=== PATIENT | male | born 1945 | race Hispanic/Latino ===

== ENCOUNTER 2023-12-05 00:31 | Inpatient (IN) | payer MEDICARE ==
[2023-12-05] MEDS ORDERED: Dexamethasone 10 MG/ML VIAL ONE (00:57)
[2023-12-05] MEDS ORDERED: Magnesium 2 GM/50 ML BAG (IN WATER) ONE (00:58)
[2023-12-05] MEDS ORDERED: Albuterol 2.5 MG (3 mL) NEB ONE (01:00)
[2023-12-05] MEDS ORDERED: Ipratropium/Albuterol 3 ML NEB ONE ×2 (01:00→12:12)
[2023-12-05] MEDS ORDERED: cefTRIAXone (ROCEPHIN) 2 GM VIAL ONE (01:27)
[2023-12-05] MEDS ORDERED: Sodium Chloride 0.9% 100 ML ONE (01:27)
[2023-12-05 01:32] LABS: #Basophils 0.1 thou/uL (0.0-0.2); #Eosinphils 0.5 thou/uL (0.0-0.7); #Monocytes 0.5 thou/uL (0.11-0.59); #Neutrophils 4.4 thou/uL (1.40-6.50); %Basophils 0.7 % (0.0-1.0); %Eosinophils 6.4 % (0.0-10.0); %Lymphocytes 23.7 % (21.0-51.0); %Monocytes 7.5 % (0.0-10.0); %Neutrophils 61.4 % (42.0-75.0); Hematocrit 50.2 % (42.0-52.0); Hemoglobin 16.3 g/dL (14.0-18.0); Mean Corpuscular HGB CONC 32.5 g/dL (32.0-36.0); Mean Corpuscular Hemoglobin 29.6 pg (27.0-31.0); Mean Corpuscular Volume 91.3 fl (78.0-98.0); Mean Platelet Volume 11.2 fL (7.4-10.4); Platelet Count 188 10x3/uL (130-400); RBC Distribution Width 14.8 % (11.5-14.5); White Blood Cell (WBC) Count 7.2 10x3/uL (4.8-10.8)
[2023-12-05 01:59] LABS: Bacteria/HPF None Seen HPF (None Seen); Bilirubin 1+ (Negative); Blood, Urine Trace (Negative); CAUTI Indications for Culture Fever or rigors; Clarity Clear (Clear); Glucose, Urine (Dipstick) Normal (Negative); Ketone, Urine Negative (Negative); Leukocyte 75 Leu/uL (Negative); Nitrite Negative (Negative); Protein, Urine (Dipstick) 200 mg/dL (Neg-Trace); RBC/HPF 0-3 HPF (0-3); Specific Gravity, Urine 1.033 (1.002-1.036); Squamous Epithelial 0-3 HPF (0-3); Urobilinogen 12 mg/dL (Less than 2); pH, Urine 5.5 (5.0-9.0)
[2023-12-05 02:05] LABS: ALT (SGPT) 10 U/L (8-55); AST (SGOT) 26 U/L (5-34); Albumin 4.3 g/dL (3.4-4.8); Alkaline Phosphatase 157 U/L (40-110); Anion Gap 19 mmol/L (10-20); BUN (Urea Nitrogen) 13 mg/dL (8.4-25.7); Bilirubin, Total 1.8 mg/dL (0.2-1.2); Calc. Creatinine Clearance 0 mL/min (70-130); Carbon Dioxide 21 mmol/L (23-31); Chloride 103 mmol/L (98-107); Estimated GFR 86; Globulin 4.4 g/dL (2.4-3.5); Glucose 111 mg/dL (83-110); Lipase 40 U/L (8-78); Protein, Total 8.7 g/dL (5.8-8.1); Sodium 139 mmol/L (136-145)
[2023-12-05] MEDS ORDERED: Azithromycin 500 MG VIAL ONE (02:13)
[2023-12-05 02:17] LABS: Influenza A by NAA Not Detected (NotDetected); Influenza B by NAA Not Detected (NotDetected); SARS-CoV-2 NAA Rapid Test Not Detected (NotDetected)
[2023-12-05 02:33] LABS: Critical Call Chem Troponin I NUR.KB14@0233; Troponin I 0.247 ng/mL (< 0.028)
[2023-12-05 02:37] LABS: Urine Culture Reflex Yes Yes
[2023-12-05] MEDS ORDERED: Aspirin Chewable 81 MG TAB ONE (03:12)
[2023-12-05] MEDS ORDERED: Furosemide 40 MG (4 mL) VIAL ONE ×3 (03:45→14:35)
[2023-12-05 04:27] LABS: Lactic Acid 2.1 mmol/L (0.5-2.2)
[2023-12-05] MEDS ORDERED: Acetaminophen 650 MG Suppository PR PRN (05:55)
[2023-12-05] MEDS ORDERED: Ondansetron ODT 4 MG TAB PO PRN (05:55)
[2023-12-05] MEDS ORDERED: Acetaminophen 325 MG TAB PO PRN (05:55)
[2023-12-05] MEDS ORDERED: Ondansetron PF 4 MG/2 ML Vial IVP PRN (05:55)
[2023-12-05 06:12] VITALS: BMI 24.3
[2023-12-05 06:23] LABS: Troponin I 0.198 ng/mL (< 0.028)
[2023-12-05] MEDS ORDERED: Ipratropium/Albuterol 3 ML NEB NEB PRN (06:53)
[2023-12-05 07:43] LABS: Magnesium 1.9 mg/dL (1.6-2.6)
[2023-12-05] MEDS: methylPREDNISolone Sod Succ 40 MG VIAL IVP SCH (08:04)
[2023-12-05] MEDS: Enoxaparin 40 MG (0.4 mL) SYRINGE SC SCH (08:04)
[2023-12-05] MEDS ORDERED: Enoxaparin 40 MG (0.4 mL) SYRINGE ONE (08:16)
[2023-12-05] MEDS ORDERED: methylPREDNISolone Sod Succ 40 MG VIAL ONE (08:16)
[2023-12-05 09:07] LABS: Troponin I 0.153 ng/mL (< 0.028)
[2023-12-05] MEDS: Furosemide 40 MG (4 mL) VIAL SLOW IVP SCH ×3 (10:32→16:12)
[2023-12-05] MEDS: Ipratropium/Albuterol 3 ML NEB NEB SCH (16:01)
[2023-12-05] MEDS: FLU VACC QS2023(65UP)/MF59C/PF 60 MCG/0.5 ML SYRINGE IM ONE (16:12)
[2023-12-06] MEDS ORDERED: cefTRIAXone\\ROCEPHIN 1 GM in Sodium Chloride 0.9% 100 ML IVPB SCH (02:00)
[2023-12-06] MEDS ORDERED: Azithromycin 500 MG in Sodium Chloride 0.9% 250 ML 250 ML IVPB SCH (02:00)
[2023-12-06 03:47] LABS: #Monocytes 0.6 thou/uL (0.11-0.59); #Neutrophils 7.3 thou/uL (1.40-6.50); %Basophils 0.1 % (0.0-1.0); %Lymphocytes 7.2 % (21.0-51.0); %Neutrophils 85.3 % (42.0-75.0); Mean Corpuscular HGB CONC 32.3 g/dL (32.0-36.0); Mean Corpuscular Hemoglobin 28.9 pg (27.0-31.0); Mean Corpuscular Volume 89.6 fl (78.0-98.0); Mean Platelet Volume 10.8 fL (7.4-10.4); Platelet Count 158 10x3/uL (130-400); RBC Distribution Width 14.6 % (11.5-14.5); White Blood Cell (WBC) Count 8.6 10x3/uL (4.8-10.8)
[2023-12-06 03:56] LABS: Hematocrit 41.2 % (42.0-52.0); Hemoglobin 13.3 g/dL (14.0-18.0)
[2023-12-06 04:14] LABS: Anion Gap 16 mmol/L (10-20); BUN (Urea Nitrogen) 20 mg/dL (8.4-25.7); Calc. Creatinine Clearance 71 mL/min (70-130); Carbon Dioxide 24 mmol/L (23-31); Chloride 103 mmol/L (98-107); Estimated GFR 88; Glucose 138 mg/dL (83-110); Sodium 139 mmol/L (136-145)
[2023-12-06] MEDS ORDERED: methylPREDNISolone Sod Succ 40 MG VIAL IVP SCH (09:00)
[2023-12-06] MEDS: Aspirin Chewable 81 MG TAB PO SCH (09:13)
[2023-12-06] MEDS: Empagliflozin 10 MG TAB PO SCH (09:13)
[2023-12-06] MEDS: Furosemide 40 MG (4 mL) VIAL SLOW IVP SCH (09:13)
[2023-12-06] MEDS: Atorvastatin Calcium 40 MG TAB PO SCH (21:17)
[2023-12-07 05:40] LABS: #Eosinphils 0.3 thou/uL (0.0-0.7); #Monocytes 0.8 thou/uL (0.11-0.59); #Neutrophils 6.5 thou/uL (1.40-6.50); %Basophils 0.3 % (0.0-1.0); %Eosinophils 3.5 % (0.0-10.0); %Lymphocytes 19.9 % (21.0-51.0); %Monocytes 8.5 % (0.0-10.0); %Neutrophils 67.5 % (42.0-75.0); Hematocrit 42.2 % (42.0-52.0); Hemoglobin 13.4 g/dL (14.0-18.0); Mean Corpuscular HGB CONC 31.8 g/dL (32.0-36.0); Mean Corpuscular Volume 91.3 fl (78.0-98.0); Mean Platelet Volume 11.2 fL (7.4-10.4); Platelet Count 163 10x3/uL (130-400); RBC Distribution Width 15.2 % (11.5-14.5); Red Blood Cell (RBC) Count 4.62 mill/uL (4.70-6.10); White Blood Cell (WBC) Count 9.6 10x3/uL (4.8-10.8)
[2023-12-07 06:11] LABS: Anion Gap 13 mmol/L (10-20); BUN (Urea Nitrogen) 23 mg/dL (8.4-25.7); Calc. Creatinine Clearance 67 mL/min (70-130); Calcium 8.9 mg/dL (7.8-10.44); Carbon Dioxide 28 mmol/L (23-31); Chloride 103 mmol/L (98-107); Estimated GFR 78; Glucose 96 mg/dL (83-110); Sodium 140 mmol/L (136-145)
[2023-12-07] MEDS: Fosfomycin 3 GM/Packet PO SCH (16:29)
[2023-12-08 06:04] LABS: #Eosinphils 0.6 thou/uL (0.0-0.7); #Monocytes 0.9 thou/uL (0.11-0.59); #Neutrophils 5.3 thou/uL (1.40-6.50); %Basophils 0.5 % (0.0-1.0); %Eosinophils 6.6 % (0.0-10.0); %Lymphocytes 19.7 % (21.0-51.0); %Monocytes 10.3 % (0.0-10.0); %Neutrophils 62.5 % (42.0-75.0); Hematocrit 41.5 % (42.0-52.0); Hemoglobin 13.1 g/dL (14.0-18.0); Mean Corpuscular HGB CONC 31.6 g/dL (32.0-36.0); Mean Corpuscular Hemoglobin 29.3 pg (27.0-31.0); Mean Corpuscular Volume 92.8 fl (78.0-98.0); Mean Platelet Volume 11.5 fL (7.4-10.4); Platelet Count 156 10x3/uL (130-400); Red Blood Cell (RBC) Count 4.47 mill/uL (4.70-6.10); White Blood Cell (WBC) Count 8.4 10x3/uL (4.8-10.8)
[2023-12-08 06:32] LABS: Anion Gap 14 mmol/L (10-20); BUN (Urea Nitrogen) 19 mg/dL (8.4-25.7); Calc. Creatinine Clearance 82 mL/min (70-130); Calcium 8.6 mg/dL (7.8-10.44); Carbon Dioxide 30 mmol/L (23-31); Chloride 100 mmol/L (98-107); Estimated GFR 91; Glucose 80 mg/dL (83-110); Potassium 4.2 mmol/L (3.5-5.1); Sodium 140 mmol/L (136-145)
[2023-12-09 05:38] LABS: #Eosinphils 0.7 thou/uL (0.0-0.7); #Monocytes 0.6 thou/uL (0.11-0.59); %Basophils 0.6 % (0.0-1.0); %Eosinophils 9.8 % (0.0-10.0); %Lymphocytes 23.9 % (21.0-51.0); %Monocytes 8.8 % (0.0-10.0); %Neutrophils 56.8 % (42.0-75.0); Hematocrit 41.3 % (42.0-52.0); Hemoglobin 13.1 g/dL (14.0-18.0); Mean Corpuscular HGB CONC 31.7 g/dL (32.0-36.0); Mean Corpuscular Volume 91.4 fl (78.0-98.0); Mean Platelet Volume 11.7 fL (7.4-10.4); Platelet Count 154 10x3/uL (130-400); RBC Distribution Width 14.8 % (11.5-14.5); Red Blood Cell (RBC) Count 4.52 mill/uL (4.70-6.10); White Blood Cell (WBC) Count 7.1 10x3/uL (4.8-10.8)
[2023-12-09 06:43] LABS: Anion Gap 12 mmol/L (10-20); BUN (Urea Nitrogen) 18 mg/dL (8.4-25.7); Calc. Creatinine Clearance 79 mL/min (70-130); Calcium 9.1 mg/dL (7.8-10.44); Carbon Dioxide 30 mmol/L (23-31); Chloride 99 mmol/L (98-107); Estimated GFR 90; Glucose 75 mg/dL (83-110); Potassium 4.2 mmol/L (3.5-5.1); Sodium 137 mmol/L (136-145)
[2023-12-09] MEDS ORDERED: Ipratropium/Albuterol 3 ML NEB NEB PRN (14:25)
[2023-12-09 15:48] VITALS: BP 106/69; TEMP 97.6
== END 2023-12-09 17:30 | disposition home or self-care (01) | DRG 280 ==
LOC: ERS 00:31 → ERHOLD 05:49 → IMCU/EMU 05:52 → 2NO 12-06 20:10
PROVIDERS: ADMIT Student in an Organized Health Care Education/Training Program; ATTEND Family Medicine
DX: I50.23 Acute on chronic systolic (congestive) heart failure (principal); I21.A1 Myocardial infarction type 2; J96.01 Acute respiratory failure with hypoxia; I42.0 Dilated cardiomyopathy; I25.5 Ischemic cardiomyopathy; I25.10 Atherosclerotic heart disease of native coronary artery without angina pectoris; E80.6 Other disorders of bilirubin metabolism; Z95.1 Presence of aortocoronary bypass graft; Z91.148 Patient's other noncompliance with medication regimen for other reason
CPT/HCPCS: 36415; 71045; 71275; 80048; 80053; 81001; 83605; 83690; 83735; 83880; 84484; 85025; 85379; 87040; 87086; 93005; 93798; 93923; 94640; 94644; 94660; J0456; J0696; J1100; J1650; J1940; J2920; J3475; J3490; J7611; J7620